=== PATIENT | female | born 1950 | race Caucasian/White ===

== ENCOUNTER 2016-11-21 05:56 | Day surgery (SDC) | payer OTHER ==
[~2016-11-21] VITALS: Ht 152.4 cm; Wt 64.1 kg
[~2016-11-21 05:56] MED LIST: ASPI81 PO; FentaNYL CITRATE-PF 100 MCG/2 ML VIAL IVP ONE; GLIM2 PO; LOSA50TA37 PO; METF500T7 PO; MIDAZOLAM HCL 2 MG/2 ML VIAL IVP ONE; PRAV40 PO; SITA100 PO
[2016-11-21] MEDS ORDERED: RINGERS SOLUTION,LACTATED 500 ML IV ONE ×2 (06:13→06:30)
[2016-11-21] MEDS ORDERED: CYCLOPENTOLATE HCL 2% 2 ML OPHTHALMIC SOLUTION ONE (06:13)
[2016-11-21] MEDS ORDERED: DICLOFENAC SODIUM 0.1% 2.5 ML OPHTHALMIC SOLUTION ONE (06:13)
[2016-11-21] MEDS ORDERED: PHENYLEPHRINE HCL 2.5% 2 ML OPHTHALMIC SOLUTION ONE (06:14)
[2016-11-21] MEDS ORDERED: MOXIFLOXACIN HCL 0.5% 3 ML OPHTHALMIC SOLUTION ONE (06:14)
[2016-11-21] MEDS ORDERED: TETRACAINE HCL/PF 0.5% 4 ML OPHTHALMIC SOLUTION ONE ×2 (06:14→22:20)
[2016-11-21] MEDS ORDERED: LIDOCAINE HCL/PF 1% 2 ML VIAL ONE (06:38)
[2016-11-21] MEDS ORDERED: EPINEPHrine 1:1,000 [1 MG/ML] AMP ONE ×2 (06:39→22:20)
[2016-11-21] MEDS ORDERED: PrednisoLONE ACETATE 1% 5 ML OPHTHALMIC SUSPENSION ONE (06:47)
[2016-11-21] MEDS: CYCLOPENTOLATE HCL 2% 2 ML OPHTHALMIC SOLUTION OD SCH ×3 (06:51→07:02)
[2016-11-21] MEDS: TETRACAINE HCL/PF 0.5% 4 ML OPHTHALMIC SOLUTION OD SCH ×3 (06:51→07:03)
[2016-11-21] MEDS: MOXIFLOXACIN HCL 0.5% 3 ML OPHTHALMIC SOLUTION OD SCH ×3 (06:52→07:03)
[2016-11-21] MEDS: DICLOFENAC SODIUM 0.1% 2.5 ML OPHTHALMIC SOLUTION OD SCH ×3 (06:52→07:02)
[2016-11-21] MEDS: PHENYLEPHRINE HCL 2.5% 2 ML OPHTHALMIC SOLUTION OD SCH ×3 (06:52→07:02)
[2016-11-21 06:58] LABS: GLUCOSE,POINT OF CARE 70 MG/DL (70-110)
[2016-11-21] MEDS ORDERED: ACETAMINOPHEN 325 MG TABLET PO PRN (07:30)
[2016-11-21 08:07] LABS: GLUCOSE,POINT OF CARE 73 MG/DL (70-110)
[2016-11-21 08:27] LABS: GLUCOSE,POINT OF CARE 76 MG/DL (70-110)
[2016-11-21] MEDS ORDERED: NEOMYCIN/POLYMYXIN B/DEXAMETH 3.5 GM OPHTHALMIC OINTMENT ONE (22:20)
[2016-11-21] MEDS ORDERED: HYALURONATE SOD/CHONDROITIN SOD 0.5 ML VIAL IO ONE (22:20)
[2016-11-21] MEDS ORDERED: POVIDONE-IODINE 10% 15 ML SOLUTION UD ONE (22:20)
[2016-11-21] MEDS ORDERED: LIDOCAINE HCL 1% 20 ML VIAL ONE (22:20)
[2016-11-21] MEDS ORDERED: HYALURONATE SODIUM 12 MG/ML 0.8 ML SYRINGE IO ONE (22:20)
[2016-11-21] MEDS ORDERED: BALANCED SALT 15 ML OPHTHALMIC IRRIG.SOLN ONE (22:20)
[2016-11-21] MEDS ORDERED: PredniSONE 10 MG TABLET ONE (22:20)
== END 2016-11-21 08:30 | disposition home or self-care (01) ==
LOC: SURGERY 05:56
PROVIDERS: ATTEND Ophthalmology
DX: E11.36 Type 2 diabetes mellitus with diabetic cataract (principal); H25.11 Age-related nuclear cataract, right eye; I10 Essential (primary) hypertension; E66.01 Morbid (severe) obesity due to excess calories; Z98.890 Other specified postprocedural states
CPT/HCPCS: 66984; 82962; 93005; C1780; J0171; J2250; J3010; J3490 ×3; J7120; J7512